=== PATIENT | female | born 1980 | race American Indian/Alaskan Native ===

== ENCOUNTER 2016-06-11 13:23 | Emergency (ER) | payer SELFPAY ==
[2016-06-11 14:14] LABS: Basophils % (Auto) 0.7 % (0.0-1.8); Eosinophils % (Auto) 2.2 % (0.0-4.3); Hematocrit 37.7 % (30.3-42.9); Hemoglobin 12.6 gm/dl (10.1-14.3); Mean Corpuscular HGB Conc 34 % (30-34); Mean Corpuscular Hemoglobin 31 pg (28-32); Mean Corpuscular Volume 93 fl (79-97); Platelet Count 269 K/mm3 (140-440); Red Blood Count 4.04 M/mm3 (3.65-5.03); Red Cell Distribution Width 13.7 % (13.2-15.2)
[2016-06-11 14:28] LABS: Anion Gap 16 mmol/L; BUN/Creatinine Ratio 15.71; Blood Urea Nitrogen 11 mg/dL (7-17); Calcium 8.8 mg/dL (8.4-10.2); Carbon Dioxide 28 mmol/L (22-30); Chloride 100.4 mmol/L (98-107); Glucose 90 mg/dL (65-100); Potassium 4.1 mmol/L (3.6-5.0); Sodium 140 mmol/L (137-145)
--- NOTE | 2016-06-11 17:21 | Emergency Department Report ---
ED Chest Pain HPI - General Chief Complaint: Chest Pain Stated Complaint: CHEST PAIN Time Seen by Provider: 06/11/16 16:29 Source: patient, EMS Mode of arrival: Stretcher Limitations: No Limitations - History of Present Illness Initial Comments: 35-year-old female with a past medical history of cardiomyopathy, PCO2 S, obesity, and sickle cell trait presents to the hospital complains of shortness of breath and chest pain that started while at school today. 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 Patient also states that she had not had a chance to eat or take her medication today. She began to have chest pressure that is intermittent and without aggravating or alleviating factors. Positive associated dyspnea on exertion. Denies nausea, vomiting, or diaphoresis. Pain goes across the mid and upper chest. Patient states she has been prescribed to wear a [place] but she is not wearing it today. She states she wears this because her EF is 20-25%. She denies recent travel, calf tenderness, history of PE/DVT, or pleuritic chest pain. Also denies orthopnea and PND. Principal Ios Developer: Dr. Gross Previous medical record reviewed. Patient was admitted here August 28-2015 for shortness of breath. Patient had a cardiac catheterization that showed normal coronary arteries with EF 40% Severity scale (0 -10): 3 - Related Data Home Medications Medication Instructions Recorded Confirmed Last Taken Loratadine [Claritin] 10 mg PO DAILY PRN 07/27/15 06/11/16 Unknown Previous Rx's Medication Instructions Recorded Last Taken Type Carvedilol [Coreg] 6.25 mg PO BID #60 tablet 09/02/15 Unknown Rx Furosemide [Lasix TAB] 20 mg PO QDAY #30 tablet 09/02/15 Unknown Rx Spironolactone [Aldactone] 12.5 mg PO QDAY #30 tablet 09/02/15 Unknown Rx Allergies Allergy/AdvReac Type Severity Reaction Status Date / Time bee venom (honey bee) Allergy Unknown Verified 06/11/16 13:54 JALIL score - Jalil Score Age > 65: (0) No Aspirin use within the Past 7 Days: (0) No 3 or more CAD Risk Factors: (0) No 2 or more Angina events in past 24 hrs: (0) No Known CAD with more than 50% Stenosis: (0) No Elevated Cardiac Markers: (0) No ST Deviation Greater than 0.5mm: (0) No JALIL Score: 0 ED Review of Systems ROS: Stated complaint: CHEST PAIN Other details as noted in HPI Comment: All other systems reviewed and negative Other: Constitutional: No fevers chills Eyes: No eye pain visual changes ENT: No ear pain or throat pain Neck: Denies pain Respiratory: Denies cough wheezing Cardiovascular: Denies palpitations, syncope GI: Denies abdominal pain, nausea, vomiting, diarrhea : Denies dysuria, urinary frequency, or urgency Musculoskeletal: Denies back pain, joint swelling Skin: Denies rash, lesions, erythema Neurologic: Denies headache, numbness, weakness Psychiatric: Denies suicidal ideation, hallucinations ED Past Medical Hx - Past Medical History Previous Medical History?: Yes Hx Hypertension: No Hx Heart Attack/AMI: No Hx Congestive Heart Failure: Yes ( induced) Hx Diabetes: No Hx Deep Vein Thrombosis: No Hx Renal Disease: No Hx Sickle Cell Disease: Yes (trait) Hx Seizures: No Hx Asthma: No Hx COPD: No Hx HIV: No Additional medical history: Preeclampsia, cardiomyopathy associated with , EF 20-25%, PCOS - Surgical History Past Surgical History?: Yes Hx Coronary Stent: No Hx Pacemaker: No Additional Surgical History: UTERINE POLYPS REMOVED. - Social History Smoking Status: Never Smoker Substance Use Type: None - Medications Home Medications: Home Medications Medication Instructions Recorded Confirmed Last Taken Type Loratadine [Claritin] 10 mg PO DAILY PRN 07/27/15 06/11/16 Unknown History Carvedilol [Coreg] 6.25 mg PO BID #60 tablet 09/02/15 06/11/16 Unknown Rx Furosemide [Lasix TAB] 20 mg PO QDAY #30 tablet 09/02/15 06/11/16 Unknown Rx Spironolactone [Aldactone] 12.5 mg PO QDAY #30 tablet 09/02/15 06/11/16 Unknown Rx ED Physical Exam - General Limitations: No Limitations - Other Other exam information: General: No limitations, patient is alert in no acute distress Head exam: Atraumatic, normocephalic Eyes exam: Normal appearance, pupils equal reactive to light, extraocular movements intact ENT: Moist mucous membrane, normal oropharynx Neck exam: Normal inspection, full range of motion, no meningismus nontender Respiratory exam: Clear to auscultation bilateral, no wheezes, rales, crackles Cardiovascular: Normal rate and rhythm, normal heart sounds Abdomen: Soft, nondistended, and nontender, with normal bowel sounds, no rebound, or guarding Extremity: Full range of motion normal inspection no deformity, no calf tenderness or edema Back: Normal Inspection, full range of motion, no tenderness Neurologic: Alert, oriented x3, cranial nerves intact, no motor or sensory deficit Psychiatric: normal affect, normal mood Skin: Warm, dry, intact ED Course Vital Signs 06/11/16 06/11/16 06/11/16 13:37 13:46 15:41 Temperature 97.5 F L Pulse Rate 65 65 74 Respiratory 18 16 Rate Blood Pressure 122/64 Blood Pressure 128/74 [Left] O2 Sat by Pulse 99 95 Oximetry 06/11/16 06/11/16 17:26 18:33 Temperature Pulse Rate 75 Respiratory 16 Rate Blood Pressure Blood Pressure 142/64 141/76 [Left] O2 Sat by Pulse 100 Oximetry - Reevaluation(s) Reevaluation #1: 06/11/16 18:53 pt feels better in ed - Consultations Consultation #1: 06/11/16 18:[address] Thakur, informed of negative cath last year, underlying ejection fraction, no signs of heart failure at this time and 2 sets of negative cardiac enzymes with unchanged EKG. I am still awaiting d-dimer and will address as needed otherwise from a cardiac standpoint patient may be discharged home with follow-up ED Medical Decision Making - Lab Data Result diagrams: 06/11/16 14:01 06/11/16 14:01 Lab Results 06/11/16 06/11/16 06/11/16 Range/Units 14:01 14:01 16:29 WBC 5.0 (4.5-11.0) K/mm3 RBC 4.04 (3.65-5.03) M/mm3 Hgb 12.6 (10.1-14.3) gm/dl Hct 37.7 (30.3-42.9) % MCV 93 (79-97) fl MCH 31 (28-32) pg MCHC 34 (30-34) % RDW 13.7 (13.2-15.2) % Plt Count 269 (140-440) K/mm3 Lymph % (Auto) 34.9 (13.4-35.0) % Kerr % (Auto) 6.7 (0.0-7.3) % Eos % (Auto) 2.2 (0.0-4.3) % Baso % (Auto) 0.7 (0.0-1.8) % Lymph # 1.7 (1.2-5.4) K/mm3 Kerr # 0.3 (0.0-0.8) K/mm3 Eos # 0.1 (0.0-0.4) K/mm3 Baso # 0.0 (0.0-0.1) K/mm3 Seg Neutrophils % 55.5 (40.0-70.0) % Seg Neutrophils # 2.8 (1.8-7.7) K/mm3 D-Dimer (0-234) ng/mlDDU Sodium 140 (137-145) mmol/L Potassium 4.1 (3.6-5.0) mmol/L Chloride 100.4 (98-107) mmol/L Carbon Dioxide 28 (22-30) mmol/L Anion Gap 16 mmol/L BUN 11 (7-17) mg/dL Creatinine 0.7 (0.7-1.2) mg/dL Estimated GFR > 60 ml/min BUN/Creatinine Ratio 15.71 % Glucose 90 (65-100) mg/dL Calcium 8.8 (8.4-10.2) mg/dL Troponin T < 0.010 < 0.010 (0.00-0.029) ng/mL 06/11/16 Range/Units 18:04 WBC (4.5-11.0) K/mm3 RBC (3.65-5.03) M/mm3 Hgb (10.1-14.3) gm/dl Hct (30.3-42.9) % MCV (79-97) fl MCH (28-32) pg MCHC (30-34) % RDW (13.2-15.2) % Plt Count (140-440) K/mm3 Lymph % (Auto) (13.4-35.0) % Kerr % (Auto) (0.0-7.3) % Eos % (Auto) (0.0-4.3) % Baso % (Auto) (0.0-1.8) % Lymph # (1.2-5.4) K/mm3 Kerr # (0.0-0.8) K/mm3 Eos # (0.0-0.4) K/mm3 Baso # (0.0-0.1) K/mm3 Seg Neutrophils % (40.0-70.0) % Seg Neutrophils # (1.8-7.7) K/mm3 D-Dimer 235.26 H (0-234) ng/mlDDU Sodium (137-145) mmol/L Potassium (3.6-5.0) mmol/L Chloride (98-107) mmol/L Carbon Dioxide (22-30) mmol/L Anion Gap mmol/L BUN (7-17) mg/dL Creatinine (0.7-1.2) mg/dL Estimated GFR ml/min BUN/Creatinine Ratio % Glucose (65-100) mg/dL Calcium (8.4-10.2) mg/dL Troponin T (0.00-0.029) ng/mL - EKG Data -: EKG Interpreted by Me (LBB) - EKG Data When compared to previous EKG there are: no significant change (09/01/15) Interpretation: normal EKG - Radiology Data Radiology results: report reviewed (cxr: naf) - Medical Decision Making Patient does not have any PE risk factors with the exception of obesity and has a d-dimer less than [address] angiogram was not obtained at this time. Patient also lacks symptoms of DVT and PE. Patient chest pain likely stress induced and has spontaneously improved with removal of stressor and dressed. Case discussed with cardiology. Given her recent negative cardiac workup within a year for CAD patient may be discharged home since no signs of active failure. I consulted pt on the importance of wearing her life vest defibrillator - Differential Diagnosis chf, mi, unstable angina, anxiety, stress, PE Critical Care Time: No Critical care attestation.: If time is entered above; I have spent that time in minutes in the direct care of this critically ill patient, excluding procedure time. ED Disposition Clinical Impression: Left bundle branch block, Chest pain, cardiomyopathy, Morbid obesity with BMI of 40.0-44.9, adult, Chronic CHF, Stress reaction Disposition: DISCHARGED TO HOME OR SELFCARE Is pt being admited?: No Does the pt Need Aspirin: No Condition: Stable Additional Instructions: Wear your life vest as instructed. Return if symptoms worsen. 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
[2016-06-11 18:33] VITALS: BP 141/76
--- NOTE | 2016-06-12 09:41 | XRay Report ---
Chest 2 views: Compared to 08/29/15. History: Shortness of breath. Findings: Normal cardiomediastinal silhouette. Trachea is midline. No consolidation, pneumothorax or pleural effusion. Impression: No acute cardiopulmonary findings.
== END 2016-06-11 19:08 | disposition home or self-care (01) ==
LOC: ED 13:23
DX: I44.7 Left bundle-branch block, unspecified (principal); O90.3 Peripartum cardiomyopathy; I50.9 Heart failure, unspecified; F43.9 Reaction to severe stress, unspecified; E66.01 Morbid (severe) obesity due to excess calories; Z68.41 Body mass index [BMI] 40.0-44.9, adult; Z91.030 Bee allergy status
CPT/HCPCS: 36415; 71020; 80048; 84484; 85025; 85379; 93005; 93010